=== PATIENT | female | born 1990 | race African-American/Black ===

== ENCOUNTER 2017-10-04 18:15 | Emergency (ER) | payer SELFPAY ==
[~2017-10-04] VITALS: Ht 162.6 cm; Wt 59.0 kg
[2017-10-04 19:17] VITALS: BP 113/70
== END 2017-10-04 19:29 | disposition home or self-care (01) ==
LOC: EDBD 18:15 → EDUNIT# 18:15 → ER 18:15
DX: B00.89 Other herpesviral infection (principal); J45.909 Unspecified asthma, uncomplicated; Z88.0 Allergy status to penicillin